=== PATIENT | male | born 1940 | race Caucasian/White ===

== ENCOUNTER 2024-12-18 17:31 | Inpatient (IN) | payer MEDICARE, OTHER ==
[~2024-12-18] VITALS: Ht 162.6 cm; Wt 65.5 kg
[2024-12-18] MEDS ORDERED: NS 1,000 ML IV SCH ×2 (19:20→20:05)
[2024-12-18] MEDS ORDERED: Ipratropium/Albuterol SulF 2.5-0.5MG/3 ML Amp INH ONE (19:40)
[2024-12-18 19:45] LABS: BASOPHILS ABSOLUTE AUTO 0.07 K/mm3 (0.00-0.23); BASOPHILS PERCENT AUTO 0 % (0-2); EOSINOPHILS PERCENT AUTO 0 % (0-6); Hematocrit 40.6 % (37.0-53.0); Hemoglobin 13.5 g/dL (13.5-17.5); IMMATURE GRAN ABSOLUTE AUTO 0.62 K/mm3 (0.00-0.10); IMMATURE GRAN PERCENT AUTO 2 % (0-1); LYMPHOCYTES ABSOLUTE AUTO 1.04 K/mm3 (0.84-5.20); LYMPHOCYTES PERCENT AUTO 4 % (21-46); MONOCYTES PERCENT AUTO 6 % (4-13); Mean Corpuscular HGB 28.5 pg (26.0-34.0); Mean Corpuscular HGB Conc 33.3 g/dL (31.5-36.5); Mean Corpuscular Volume 86 fL (80-100); Mean Platelet Volume 11.6 fL (9.1-12.4); NEUTROPHILS ABSOLUTE AUTO 25.08 K/mm3 (1.96-9.15); NEUTROPHILS PERCENT AUTO 88 % (41-73); Platelet Count 305 K/mm3 (150-400); RDW Standard Deviation 44.2 fL (35.1-46.3); Red Blood Cell Count 4.74 M/mm3 (4.30-5.90); White Blood Cell Count 28.41 K/mm3 (4.00-11.30)
[2024-12-18] MEDS ORDERED: CefTRIAXone Sodium 1,000 MG in NS 50 ML IV ONE (19:45)
[2024-12-18 20:05] LABS: Albumin, Blood 2.7 g/dL (3.4-5.0); Albumin/Globulin Ratio 0.5 (0.8-1.8); Bilirubin, Total 0.7 mg/dL (0.1-1.0); Bun/Creatinine Ratio 29.6 (12.0-20.0); Calcium, Blood 9.2 mg/dL (8.5-10.1); Creatinine, Blood 1.79 mg/dL (0.60-1.20); Potassium, Blood 3.2 mmol/L (3.5-5.5); Total Protein, Blood 7.7 g/dL (6.4-8.2)
[2024-12-18] MEDS ORDERED: FLU VACC TS2024-25(6MOS UP)/PF 45 MCG/0.5 ML SYRINGE IM ONE (20:05)
[2024-12-18] MEDS ORDERED: Ondansetron HCl 2 MG / ML 2ML Vial IV PRN (20:05)
[2024-12-18] MEDS ORDERED: Acetaminophen 325 MG TABLET PO PRN (20:05)
[2024-12-18] MEDS ORDERED: Enoxaparin 30 MG/0.3 ML SYR SC SCH (21:00)
[2024-12-18] MEDS ORDERED: Azithromycin 500 MG in NS 250 ML IV SCH (21:00)
[2024-12-18 21:15] LABS: CORONAVIRUS COVID-19 AG Negative (NEGATIVE); INFLUENZA A AG Negative (NEGATIVE); INFLUENZA B AG Negative (NEGATIVE)
[2024-12-18 21:37] VITALS: BP 169/74
--- NOTE | 2024-12-18 23:08 | NUR ---
PATIENT IS A NEW ADMIT FROM THE ED. ALERT, ORIENTED AND BEDREST REPORTING TOO WEAK TO GET UP AT THIS TIME. 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 ON 8L HIGH FLOW PLACED IN ED STATING 94% AND RA BASELINE. TELEMETRY PLACED NSR 92 AND LATER HAD FOUR BEAT RUN OF V-TACH JUST OVER AN HOUR AFTER ADMIT. NS STARTED @ 75 mL/HR AND IV ABX INFUSING. [facility] CALLED BY CHARGE TO GET PATIENT MED LIST WHERE HE LIVES. LOW GRADE TEMP 99.6. DENIES CHEST PAIN AND N/V. ORIENTED TO ROOM AND CALL LIGHT SYSTEM. WCTM.
[2024-12-18] MEDS ORDERED: Rosuvastatin Calcium 10 MG Tab PO SCH (23:40)
[2024-12-18] MEDS ORDERED: Morphine Sulfate 15 MG TABCR PO PRN (23:45)
[2024-12-19] VITALS (8 sets, daily range): BP systolic 111–152; BP diastolic 45–69
[2024-12-19] MEDS ORDERED: FentaNYL Citrate 50 MCG/ML 2 ML Injection IV PRN ×2 (00:05→00:25)
[2024-12-19] MEDS ORDERED: Potassium Chloride 20 MEQ in NS 90 ML IV ONE (00:20)
[2024-12-19] MEDS ORDERED: Potassium Chl 20MEQ/Water100ML 100 ML IV STA (00:27)
--- NOTE | 2024-12-19 01:58 | NUR ---
DR DÍAZ REPORTS HE IS HOLDING PO MORPHINE AT THIS TIME BASED ON LABS. PATIENT IS REFUSING ALL OTHER SUGGESTED PAIN MEDS. IV K+ INFUSING. WCTM.
[2024-12-19] MEDS ORDERED: Lactated Ringer's 500 ML IV ONE (03:30)
[2024-12-19] MEDS ORDERED: METOPROLOL TARTRATE IV ONE (03:33)
[2024-12-19] MEDS ORDERED: Metoprolol Tartrate 1 MG/ML 5 ML VIAL IV ONE ×3 (04:05→07:00)
[2024-12-19] MEDS ORDERED: Adenosine 3 MG/ML 2 ML Vial ONE (04:06)
[2024-12-19] MEDS ORDERED: Adenosine 3 MG/ML 2 ML Vial IV ONE (04:10)
[2024-12-19 04:11] LABS: Bicarbonate Venous 23.2 mmol/L (24.0-30.0); pH Blood Venous 7.43 (7.34-7.37)
[2024-12-19 04:13] LABS: Hemoglobin 13.1 g/dL (13.5-17.5); Mean Corpuscular HGB Conc 33.6 g/dL (31.5-36.5); Mean Corpuscular Volume 87 fL (80-100); Mean Platelet Volume 12.1 fL (9.1-12.4); Platelet Count 309 K/mm3 (150-400); RDW Coefficient Variation 14.3 % (11.7-14.2); RDW Standard Deviation 45.4 fL (35.1-46.3); Red Blood Cell Count 4.51 M/mm3 (4.30-5.90); White Blood Cell Count 32.51 K/mm3 (4.00-11.30)
[2024-12-19 04:32] LABS: BAND PERCENT MAN 14 % (0-8); BASOPHILS PERCENT MAN 0 % (0-2); EOSINOPHILS PERCENT MAN 0 % (0-6); LYMPHOCYTES ABSOLUTE MAN 0.65 K/mm3 (0.84-5.20); LYMPHOCYTES PERCENT MAN 2 % (21-46); MONOCYTES ABSOLUTE MAN 2.27 K/mm3 (0.16-1.47); MONOCYTES PERCENT MAN 7 % (4-13); NEUTROPHILS ABSOLUTE MAN 29.58 K/mm3 (1.96-9.15); SEG NEUTROPHILS PERCENT MAN 77 % (41-73); TOTAL CELLS COUNTED 100
[2024-12-19 04:50] LABS: D-Dimer, Quantitative 1.46 mg/L FEU (0.00-0.52); International Normalized Ratio 1.17; Prothrombin Time Results 12.4 Sec (9.7-11.5)
[2024-12-19 05:02] LABS: Thyroid Stimulating Hormone 0.181 uIU/mL (0.360-4.800)
[2024-12-19 05:03] LABS: Albumin, Blood 2.3 g/dL (3.4-5.0); Albumin/Globulin Ratio 0.5 (0.8-1.8); Bilirubin, Total 0.6 mg/dL (0.1-1.0); Bun/Creatinine Ratio 28.4 (12.0-20.0); Calcium, Blood 8.6 mg/dL (8.5-10.1); Creatinine, Blood 1.62 mg/dL (0.60-1.20); Globulin, Blood 4.3 g/dL (2.2-4.0); Potassium, Blood 3.5 mmol/L (3.5-5.5); Total Protein, Blood 6.6 g/dL (6.4-8.2)
[2024-12-19] MEDS ORDERED: Potassium Chl 20MEQ/Water100ML 100 ML IV SCH (05:25)
[2024-12-19] MEDS ORDERED: Potassium Chloride 40 MEQ in NS 250 ML IV ONE (06:00)
[2024-12-19] MEDS ORDERED: Mag Sulfate 1 GM/D5% 100ML 100 ML IV STA (07:01)
[2024-12-19] MEDS ORDERED: NS 1,000 ML IV SCH (08:50)
[2024-12-19] MEDS ORDERED: Lactobacil 2-S.Thermo-Bifido 1 1 Cap PO SCH (09:00)
[2024-12-19] MEDS ORDERED: Metoprolol Tartrate 25 MG Tab PO SCH (09:00)
--- NOTE | 2024-12-19 10:00 | NUR ---
AM NOTE: PATIENT ALERT AND ORIENTED X4. PERRLA. DENIES PAINS. ABLE TO MAKE NEEDS KNOWN. MOVING ALL EXTREMITIES. USES 4 WHEEL WALKER AT BASELINE. HELPING STAFF TURN IN BED. DENIES PAINS. TELE SHOWING SINUS ARRHYTHMIA WITH HR 50-70'S. DENIES CHEST PAIN/PRESSURE/PALPITATIONS. NO EDEMA NOTED. IV FLUIDS INFUSING PER EMAR. PPP. ON 11L HIGH FLOW NASAL CANNULA SATING MID 90'S. LUNG SOUNDS COARSE WORSE ON LET THIS MORNING COMPARED TO RIGHT. COARSE/WET COUGH. EVEN AND UNLABORED RESPIRATIONS AT REST. INSTRUCTED AND ENCOURAGED TO USE IS AND FLUTTER. BOWEL TONES PRESENT IN ALL FOUR QUADRANTS. SPEECH THERAPY THIS MORNING. TOLERATING PO LQUIDS, DENIES BREAKFAST AND LUNCH. STATES HE HAS A POOR APPEATITE. LIQUID GREEN TINGED STOOLS. GI PANEL ORDERS IN PLACE AND SAMPLE SENT. ATTENDS IN PLACE. CHRONIC ESTRADA CHANGED UPON ADMIT AND DRAINING NISHI/YELLOW URINE TO GRAVITY. INTERMIT NAUSEA, RELIEVED WITH IV ZOFRAN. DR. VARGHESE TO BEDSIDE THIS MORNING AND THIS RN PRESENT FOR MD ROUNDING. SECURITY TO BEDSIDE AND PLACED PATIENT WALLET IN SAFE. CALL LIGHT IN REACH.
[2024-12-19] MEDS ORDERED: ASPI81CH PO (10:20)
[2024-12-19] MEDS ORDERED: EUTHYROX50 MCG PO (10:21)
[2024-12-19] MEDS ORDERED: MS CONTIN15 MG PO (10:22)
[2024-12-19] MEDS ORDERED: Morphine Sulfat15 MG PO (10:24)
[2024-12-19] MEDS ORDERED: ONDA4ODT MM (10:25)
[2024-12-19] MEDS ORDERED: Crestor40 MG PO (10:26)
[2024-12-19] MEDS ORDERED: MIRALAX17 GM PO (10:26)
[2024-12-19] MEDS ORDERED: BISA10S PR (10:27)
[2024-12-19] MEDS ORDERED: LOPE2C PO (10:27)
[2024-12-19] MEDS ORDERED: DULCOLAX400 MG/5 M PO (10:27)
[2024-12-19] MEDS ORDERED: Polyethylene Glycol 3350 17 gm PO PRN (10:45)
[2024-12-19] MEDS ORDERED: Magnesium Hydroxide Conc 10 ML UDC PO PRN (10:45)
[2024-12-19] MEDS ORDERED: Bisacodyl 10 MG Supp PR PRN (10:45)
[2024-12-19] MEDS ORDERED: Ondansetron 4 MG SoluTab MM PRN (10:45)
[2024-12-19] MEDS ORDERED: Loperamide HCl 2 MG Cap PO PRN (10:45)
[2024-12-19 10:53] LABS: Source, Urine Foley catheter
[2024-12-19] MEDS ORDERED: Lactated Ringer's 1,000 ML IV SCH (11:00)
[2024-12-19 11:32] LABS: Appearance, Urine Hazy (Clear); Bilirubin, Urine Neg (Neg); Blood, Urine 5+ (Neg); Color, Urine Yellow (P-Yellow); Glucose Qualitative, Urine Neg (Neg); Ketones, Urine Neg (Neg); Leukocyte Esterase, Urine 2+ (Neg); Nitrite, Urine Neg (Neg); Protein, Urine 3+ (Neg); Urobilinogen, Urine NORM (Normal)
[2024-12-19 12:05] LABS: Hyaline Casts 0-2 /lpf (0-2); White Blood Cells, Urine 50-100 /hpf (0-5)
[2024-12-19 12:06] LABS: Amorphous Light (0-Heavy); Bacteria Many /hpf; Granular Casts 0-2 /lpf (0); Red Blood Cells, Urine 50-100 /hpf (0-2); Squamous Epithelial Cells Not Seen /hpf (Few)
--- NOTE | 2024-12-19 14:25 | NUR ---
NO POLST ON FILE WITH [facility] OR [facility].
[2024-12-19 16:47] LABS: Adenovirus F 40/41 Not Detected (NOT DETECT); Astrovirus Not Detected (NOT DETECT); Campylobacter Sp Not Detected (NOT DETECT); Cryptosporidium Not Detected (NOT DETECT); Cyclospora Cayetanensis Not Detected (NOT DETECT); E. Coli O157 Not Detected (NOT DETECT); Entamoeba Histolytica Not Detected (NOT DETECT); Enteroaggregative E. coli-EAEC Not Detected (NOT DETECT); Enteropathogenic E. coli-EPEC Not Detected (NOT DETECT); Enterotoxigenic E. coli-ETEC Not Detected (NOT DETECT); Giardia Lamblia Not Detected (NOT DETECT); Norovirus GI/GII Not Detected (NOT DETECT); Plesiomonas Shigelloides Not Detected (NOT DETECT); Rotavirus A Not Detected (NOT DETECT); Salmonella Sp Not Detected (NOT DETECT); Sapovirus Not Detected (NOT DETECT); Shiga Toxin-prod E. coli-STEC Not Detected (NOT DETECT); Shigella/Enteroin E. coli-EIEC Not Detected (NOT DETECT); Vibrio Cholerae Not Detected (NOT DETECT); Vibrio Sp Not Detected (NOT DETECT); Yersinia Enterocolitica Not Detected (NOT DETECT)
--- NOTE | 2024-12-19 18:24 | NUR ---
SHIFT SUMMARY: NO ACUTE CHANGES. PATIENT REMAINS ALERT AND ORIENTED. SLEEPING MOST OF SHIFT, WAKING FOR CARES. REMAINS ON 9L HIGH FLOW NASAL CANNULA SATING MID 90'S. TELE SHOWING SINUS ARRHYTHMIA WITH HR 50-70'S. VITAL SIGNS STABLE. POOR APPEATITE, DRINKING ENSURE BUT REFUSING MEALS. FREQUENT LOOSE GREEN STOOLS. GI PANEL COLLECTED THIS SHIFT. INTERMIT NAUSEA, RELIEVED WITH IV ZOFRAN. LR INFUSING PER EMAR. CALL LIGHT IN REACH. DENIES NEEDS.
[2024-12-19] MEDS ORDERED: CefTRIAXone Sodium 1,000 MG in NS 100 ML IV SCH (20:00)
--- NOTE | 2024-12-19 21:03 | NUR ---
ASSUMPTION NOTE: THIS RN TO ASSUME CARE OF PATIENT. PATIENT IS ALERT AND ORIETNED X4 AND COMPLAINING OF SOME STOMACH PAIN AND ASKED FOR TYLENOL. VITAL SGINS TAKEN AND PATIENT STABLE. PATIENT HAS FLUIDS RUNNING AND STATED HIS STOMACH FEELS LIKE CRAMPING PAIN. PATIENT HAD A BOWEL MOVEMENT THAT WAS VERY LOOSE AND GREEN. PATIENT HAS CALL LIGHT WITHIN REACH AND BED IN LOWEST POSITION.
[2024-12-20] VITALS (10 sets, daily range): BP systolic 140–187; BP diastolic 58–85
--- NOTE | 2024-12-20 00:29 | NUR ---
MD CALLED THIS RN CALLED RESIDENT FOR PATIENT NOTED HYPERTENSIVE EPISODES, SYTOLIC >180. PATIENT ASYMPTOMATIC, RESIDENT ORDERS GIVEN.
[2024-12-20] MEDS ORDERED: HydrALAZINE HCl 20 MG / ML 1ML Vial IV PRN (00:30)
--- NOTE | 2024-12-20 01:45 | NUR ---
MD CALLED: THIS RN CALLED MD REGARDING THE PATIENTS BLOOD PRESSURE SYSTOLIC >180 AND NOTIFIED OF PATIENTS RUN OF SVT WITH TOUCHING THE 140'S. MD DID NOT PLACE NEW ORDERS, STATED TO CONTINUE TO MONITOR AND WILL LOOK INTO CHART. PATIENT STATES "HE DOES NOT FEEL ANY CHEST PAIN, DOES FEEL SOB AND STOMACH STILL HURTS". THIS RN INCREASED OXYGEN AND WILL CONTINUE TO MONITOR BLOOD PRESSURE.
[2024-12-20] MEDS ORDERED: Mag Hydrox/Al Hydrox/Simeth 18 ML,Lidocaine 2% Viscous Soln 9 ML,Atropine/Scopalam/Hyos... PO PRN (02:50)
[2024-12-20] MEDS ORDERED: AmLODIPine Besylate 5 MG Tab PO SCH (02:55)
--- NOTE | 2024-12-20 02:59 | NUR ---
ATTENDING CALLED THIS RN CALLED ATTENDIING PATIENT CONTINUES TO HAVE ELEVATED SYSTOLIC BLOOD PRESSURE IN THE 180'S. PATIENT DENIES ANY SYMTPOMS BUT CONTINUES TO COMPLAIN OF STOMACH PAIN A GI COCKTAIL WAS ASKED FOR ALSO. ORDERS WERE TO BE PLACED.
--- NOTE | 2024-12-20 04:19 | NUR ---
SHIFT SUMMARY: PATIENT IS ALERT AND ORIENTED X4 AND ACTIVE IN HIS CARE, IS ABLE TO MAKE NEEDS KNOWN. ON TELE SHOWING SINUS WITH RATE IN 70'S. PATIENT DID HAVE TWO RUNS OF SVT THROUGHOUT THE SHIFT, SEE PREVIOUS NOTES FOR MORE DETAILS. PATIENT BLOOD PRESSURE ELVATED THROUGHOUT SHIFT AND WAS GIVEN MEDICATIONS PER MD ORDERS, SEE PREVIOUS NOTES FOR MORE DETAILS. PATIENT COMPLAINED OF GI UPSET AND WAS GIVEN A GI COCKTAIL & ZOFRAN. PATIENT WAS ABLE TO SLEEP THROUGHOUT SHIFT. PATIENT CONTINUES TO HAVE LOOSE LIQUID STOOL AND DECLINED A RECTAL TUBE. THIS RN WILL CONTINUE TO MONITOR PATIENT UNTIL SHIFT CHANGE AND DAY SHIFT RN ASSUMES CARE.
[2024-12-20 05:09] LABS: Hematocrit 38.1 % (37.0-53.0); Hemoglobin 12.7 g/dL (13.5-17.5); Mean Corpuscular HGB 28.5 pg (26.0-34.0); Mean Corpuscular HGB Conc 33.3 g/dL (31.5-36.5); Mean Corpuscular Volume 85 fL (80-100); Mean Platelet Volume 12.4 fL (9.1-12.4); Platelet Count 342 K/mm3 (150-400); RDW Coefficient Variation 14.5 % (11.7-14.2); RDW Standard Deviation 45.1 fL (35.1-46.3); Red Blood Cell Count 4.46 M/mm3 (4.30-5.90); White Blood Cell Count 19.99 K/mm3 (4.00-11.30)
[2024-12-20 05:29] LABS: BAND PERCENT MAN 5 % (0-8); BASOPHILS PERCENT MAN 0 % (0-2); EOSINOPHILS PERCENT MAN 0 % (0-6); LYMPHOCYTES ABSOLUTE MAN 1.39 K/mm3 (0.84-5.20); LYMPHOCYTES PERCENT MAN 7 % (21-46); MONOCYTES ABSOLUTE MAN 0.79 K/mm3 (0.16-1.47); MONOCYTES PERCENT MAN 4 % (4-13); NEUTROPHILS ABSOLUTE MAN 17.79 K/mm3 (1.96-9.15); SEG NEUTROPHILS PERCENT MAN 84 % (41-73); TOTAL CELLS COUNTED 100
[2024-12-20 05:36] LABS: Albumin, Blood 2.2 g/dL (3.4-5.0); Albumin/Globulin Ratio 0.5 (0.8-1.8); Bilirubin, Total 0.4 mg/dL (0.1-1.0); Bun/Creatinine Ratio 31.1 (12.0-20.0); Creatinine, Blood 1.22 mg/dL (0.60-1.20); Globulin, Blood 4.4 g/dL (2.2-4.0); Magnesium, Blood 2.4 mg/dL (1.6-2.4); Potassium, Blood 3.2 mmol/L (3.5-5.5); Total Protein, Blood 6.6 g/dL (6.4-8.2)
[2024-12-20] MEDS ORDERED: Levothyroxine Sodium 0.05 MG Tab PO SCH (06:00)
--- NOTE | 2024-12-20 07:30 | NUR ---
ASSUMPTION OF CARE: THIS RN TO ASSUE CARE OF PT AFTER REPORT FROM NOC RN. UPON ENTRANCE INTO ROOM PT AXO X 4. HE IS COOPERATIVE WITH RN ASSESMENT. HE DENIES ANY C/P AND REPORTS IMPROVEMENT IN SOB. HE HAS BILATERAL LOWER LOBE PNEUMONIA RECEIVING IV ABX, SATTING 94% ON 6L. LUNG SOUNDS CRACKLES IN BASES. HE HAS BEEN TREATED FOR ELEAVTED B/P WOTH IV HUDRALYZINE AND PO AMLODIPINE T/O THE NIGHT. B/P STABLE 140/68. PT C/O NAUSEA AND ABD PAIN WITH LOOSE GREEN STOOL T/O THE NIGHT, PLAN TO DISCUSS NAUSEA MEDS WITH MD. PO REGLAN Q6. PT HAS 20G IVS TO LAC AND RAC. WAS HAVING RUNS OF SVT INTO 160S. HR STABLE AT 78 SINUS AT THIS TIME. HE HAS LOWER EXT WEAKNESS AND BASLEINE AMBULATES WITH WALKER. ESTRADA CATH CHRONIC AND DRAINING TO GRAVITY. CALL LIGHT PROVIDED, PT DENIES NEEDS.
[2024-12-20] MEDS ORDERED: Potassium Chloride 20 MEQ TabCR PO ONE (08:00)
[2024-12-20] MEDS ORDERED: Aspirin 81 MG Chew PO SCH (09:00)
[2024-12-20] MEDS ORDERED: Metoclopramide HCl 5MG / ML 2ML Vial IV PRN (09:55)
[2024-12-20] MEDS ORDERED: Morphine Sulfate 4 MG/1 ML Injection IV PRN (10:30)
[2024-12-20] MEDS ORDERED: Lactated Ringer's 1,000 ML IV SCH (11:00)
[2024-12-20] MEDS ORDERED: Potassium Chl 20MEQ/Water100ML 100 ML IV SCH (13:00)
[2024-12-20] MEDS ORDERED: Morphine Sulfate 15 MG TABCR PO SCH (16:00)
--- NOTE | 2024-12-20 16:38 | NUR ---
PT HAD RUN OF SVT UP TO 160S. PT CONVERTED BACK TO 73NSR WITHIN 2 MINUTES. NOTIFIED.
--- NOTE | 2024-12-20 17:48 | NUR ---
PCU DAY SHIFT SUMMARY: PT CONTINUED TO COMPLAIN OF N/V T/O THE DAY. HE WAS GIVEN PRN ZOFRAN X2 DOSES WITH 1 EPISODE OF EMESIS WITH PO POTASSIUM. NOW RECEIVING IV POTASSIUM W/ LR. HE HAD SEVERAL LIQUID BOWEL MOVEMENTS, GREEN IN COLOR. IMMODIUM GIVEN X2. PT REMAINED AXO X 4. HE WAS IRRITABLE AND ANXIOUS. HX OF ANXIETY DISORDER AND PANIC ATTACKS. HE HAD A SINGLE RUN OF SVT 160S THAT RESOLVED AFTER 2 MINUTES W/O INTERVENTION. MD NOTIFIED. HE CONTINUED TO BE ON 6L N/C WITH CRACKLES IN BILATERAL LOBES. SATTING 99%. RECEIVING IV ABX. HE HAS SOME EXCORIATION TO SACRUM D/T LIQUID STOOLS. HE WISHES TO REMAIN UNBOTHERED BY RN AND OTHER STAFF AND ADVISED HE WOULD CALL IF HE NEEDED STAFF ASSISTANCE. PT DENIES NEEDS, SLEEPING AT THIS TIME
[2024-12-21] VITALS (8 sets, daily range): BP systolic 119–167; BP diastolic 47–71
[2024-12-21] MEDS ORDERED: Levothyroxine Sodium 0.025 MG Tab PO SCH (06:00)
[2024-12-21 07:57] LABS: Hematocrit 34.3 % (37.0-53.0); Hemoglobin 11.5 g/dL (13.5-17.5); Mean Corpuscular HGB 29.2 pg (26.0-34.0); Mean Corpuscular HGB Conc 33.5 g/dL (31.5-36.5); Mean Corpuscular Volume 87 fL (80-100); Mean Platelet Volume 11.7 fL (9.1-12.4); Platelet Count 364 K/mm3 (150-400); RDW Coefficient Variation 14.5 % (11.7-14.2); RDW Standard Deviation 46.3 fL (35.1-46.3); Red Blood Cell Count 3.94 M/mm3 (4.30-5.90); White Blood Cell Count 19.54 K/mm3 (4.00-11.30)
[2024-12-21 08:23] LABS: Albumin/Globulin Ratio 0.5 (0.8-1.8); Bilirubin, Total 0.4 mg/dL (0.1-1.0); Bun/Creatinine Ratio 28.6 (12.0-20.0); Calcium, Blood 8.7 mg/dL (8.5-10.1); Creatinine, Blood 1.19 mg/dL (0.60-1.20); Potassium, Blood 3.4 mmol/L (3.5-5.5)
[2024-12-21 08:32] LABS: BASOPHILS PERCENT MAN 0 % (0-2); EOSINOPHILS PERCENT MAN 0 % (0-6); LYMPHOCYTES ABSOLUTE MAN 1.75 K/mm3 (0.84-5.20); LYMPHOCYTES PERCENT MAN 9 % (21-46); METAMYELOCYTE ABSOLUTE MAN 0.39 K/mm3 (0.00-0.00); METAMYELOCYTE PERCENT MAN 2 % (0-0); MONOCYTES ABSOLUTE MAN 1.95 K/mm3 (0.16-1.47); MONOCYTES PERCENT MAN 10 % (4-13); NEUTROPHILS ABSOLUTE MAN 15.43 K/mm3 (1.96-9.15); SEG NEUTROPHILS PERCENT MAN 79 % (41-73); TOTAL CELLS COUNTED 100
[2024-12-21] MEDS ORDERED: Metoprolol Tartrate 50 MG Tab PO SCH (09:00)
[2024-12-21] MEDS ORDERED: AmLODIPine Besylate 5 MG Tab PO SCH (09:00)
[2024-12-21] MEDS ORDERED: Potassium Phosphate Dibasic 30 MM in Dextrose 5% 500 ML IV STA (13:02)
--- NOTE | 2024-12-21 17:05 | NUR ---
SHIFT SUMMARY NO ACUTE CHANGES THIS SHIFT. PT A&OX4. SP02>90% oN 8L HUMIDIFIED HIFLO. TELE SHOWS NSR/SBR HR 50-70'S. C/O OF PAIN, MEDICATED PER EMAR. ESTRADA CATHETER DRAINING TO GRAVITY. NO BM THIS SHIFT. PT ABLE TO EAT MEALS TODAY, PT STATES FOR FIRST TIME IN A WEEK. MEDICATED W/ ZOFRAN PER EMAR X1. NO LOOSE STOOLS. FLUIDS INFUSED PER EMAR. KPHOS INFUSING PER EMAR. CALL LIGHT IN REACH.
[2024-12-22 03:24] VITALS: BP 149/51
--- NOTE | 2024-12-22 06:02 | NUR ---
SHIFT SUMMARY PT A&O X4, CALM, COOPERATIVE TO CARE. HR IN THE 50'S-60'S, DENIES CP/PRESSURE, NUMB/TINGLING, SBP ELEVATED, MEDICATING PER EMAR. 02 RNAGING FROM 89-94% ON 8L VIA HFNC, HE HAS A NONPRODUCTOVE COUGH. PT DESATS WITH SLEEP, HE RECOVERS QUICKLY WITH DEEP BREATHING. PT HAS A CHRONIC INDWELLING ESTRADA, DRAINING TO GRAVITY. PT WAS HAVING LOOSE STOOLS, EXTERNAL PUREWICK PLACED OVER RECTUM TO COLLECT STOOL. PT HAS NOT HAD A BM T/O SHIFT. HE IS RESTING IN BED. WILL MONITOR AND REPORT TO CENTRAL OFFICE TECHNICIAN RN.
[2024-12-22 06:39] LABS: BASOPHILS ABSOLUTE AUTO 0.11 K/mm3 (0.00-0.23); BASOPHILS PERCENT AUTO 1 % (0-2); EOSINOPHILS ABSOLUTE AUTO 0.12 K/mm3 (0.00-0.68); EOSINOPHILS PERCENT AUTO 1 % (0-6); Hematocrit 35.8 % (37.0-53.0); Hemoglobin 11.8 g/dL (13.5-17.5); IMMATURE GRAN PERCENT AUTO 8 % (0-1); LYMPHOCYTES ABSOLUTE AUTO 1.97 K/mm3 (0.84-5.20); LYMPHOCYTES PERCENT AUTO 15 % (21-46); MONOCYTES ABSOLUTE AUTO 0.89 K/mm3 (0.16-1.47); MONOCYTES PERCENT AUTO 7 % (4-13); Mean Corpuscular HGB 28.5 pg (26.0-34.0); Mean Corpuscular Volume 87 fL (80-100); Mean Platelet Volume 11.7 fL (9.1-12.4); NEUTROPHILS ABSOLUTE AUTO 8.98 K/mm3 (1.96-9.15); NEUTROPHILS PERCENT AUTO 68 % (41-73); Platelet Count 354 K/mm3 (150-400); RDW Coefficient Variation 14.6 % (11.7-14.2); RDW Standard Deviation 46.5 fL (35.1-46.3); Red Blood Cell Count 4.14 M/mm3 (4.30-5.90); White Blood Cell Count 13.17 K/mm3 (4.00-11.30)
[2024-12-22 07:09] LABS: Albumin, Blood 2.1 g/dL (3.4-5.0); Albumin/Globulin Ratio 0.5 (0.8-1.8); Bilirubin, Total 0.4 mg/dL (0.1-1.0); Bun/Creatinine Ratio 30.2 (12.0-20.0); Calcium, Blood 8.4 mg/dL (8.5-10.1); Creatinine, Blood 1.16 mg/dL (0.60-1.20); Magnesium, Blood 2.4 mg/dL (1.6-2.4); Potassium, Blood 3.7 mmol/L (3.5-5.5); Total Protein, Blood 6.1 g/dL (6.4-8.2)
[2024-12-22 07:51] LABS: BASOPHILS PERCENT MAN 0 % (0-2); EOSINOPHILS ABSOLUTE MAN 0.13 K/mm3 (0.00-0.68); EOSINOPHILS PERCENT MAN 1 % (0-6); LYMPHOCYTES ABSOLUTE MAN 1.31 K/mm3 (0.84-5.20); LYMPHOCYTES PERCENT MAN 10 % (21-46); METAMYELOCYTE ABSOLUTE MAN 0.13 K/mm3 (0.00-0.00); METAMYELOCYTE PERCENT MAN 1 % (0-0); MONOCYTES ABSOLUTE MAN 1.18 K/mm3 (0.16-1.47); MONOCYTES PERCENT MAN 9 % (4-13); MYELOCYTE ABSOLUTE MAN 0.13 K/mm3 (0.00-0.00); MYELOCYTE PERCENT MAN 1 % (0-0); NEUTROPHILS ABSOLUTE MAN 10.27 K/mm3 (1.96-9.15); SEG NEUTROPHILS PERCENT MAN 78 % (41-73); TOTAL CELLS COUNTED 100
[2024-12-22 07:55] VITALS: BP 155/73
[2024-12-22] MEDS ORDERED: AmLODIPine Besylate 5 MG Tab PO SCH (09:00)
[2024-12-22] MEDS ORDERED: Metoprolol Tartrate 50 MG Tab PO SCH (09:00)
[2024-12-22] MEDS ORDERED: Enoxaparin 40 MG/0.4 ML SYR SC SCH (09:00)
--- NOTE | 2024-12-22 10:00 | NUR ---
AM NOTE: PATIENT ALERT AND ORIENTED. ABLE TO MAKES NEEDS KNOWN. USING CALL LIGHT. MOVING ALL EXTREMITIES. ABLE TO TURN SELF IND. COMPLAINS OF LOWER BACK PAIN, MEDICATED PER EMAR. TELE SHOWING SB/SR WITH PVC/PAC. HR 50-70'S. SBP 150'S. DENIES CHEST PAIN/PRESSURE/PALPITATIONS. PPP. IV SALINE LOCKED. ON 6-8L HIGH FLOW NASAL CANNULA SATING MID 90'S. SOB WITH MOVEMENT IN BED. MOIST/WET COUGH. IS AND FLUTTER VALVE AT BEDSIDE AND THIS RN REINFORCED EDUCATION AND ENCOURAGMENT. BOWEL TONES PRESENT. PATIENT HAD MULTIPLE LIQUID STOOL PRIOR TO THIS SHIFT BUT IS NOW COMPLAINGING OF CONSTIPATION AND WAS GIVEN MIRALAX BY PRIOR SHIFT. TOLERATING PO DIET. ORAL CARE COMPLETED THIS AM. CHRONIC ESTRADA CATH IN PLACE. CATH CARE COMPLETED WITH AM BED BATH. DENIES ABDOMINAL PAIN/NAUSEA. CALL LIGHT IN REACH.
[2024-12-22 12:17] VITALS: BP 113/51
[2024-12-22 15:51] VITALS: BP 130/56
--- NOTE | 2024-12-22 18:24 | NUR ---
SHIFT SUMMARY: NO ACUTE CHANGES. PATIENT REMAINS ALERT AND ORIENTED. TELE CONTINUES TO SHOW SB/SR. TITRATED DOWN TO 3L THIS SHIFT. WORKING WITH PT/OT. MEDICATED FOR PAIN WITH SCHEDULED MORPHINE. UP TO RECLINER THIS AFTERNOON AND SHORT WALK AROUND THE ROOM. IV'S SALINE LOCKED. 2 LOOSE BOWEL MOVEMENTS. CHRONIC ESTRADA CATH REMAINS PATENT WITH NISHI COLORED URINE TO GRAVITY. CALL LIGHT IN REACH. DENIES NEEDS AT THIS TIME.
[2024-12-22 19:30] VITALS: BP 128/81
--- NOTE | 2024-12-22 23:00 | NUR ---
TRANSFER SUMMARY PT A&O X4, CALM, COOPERATIVE TO CARE. HR IN THE 50'S-60'S, SINUS RHYTHM. HE DENIES CP/PRESSURE, NUMB/TINGLING, SBP IN THE 130'S. O2 >90% ON 4L VIA HHFNC, HE DENIES SOB AT THIS TIME. CHRONIC ESTRADA IN PLACE, ESTRADA DRAINING TO GRAVITY. PT DENIES ANY QUESTIONS OR CONCERNS. ROOM AVAILABLE FOR PT ON MEDICAL FLOOR. REPORT GIVEN TO TITUS WALKER. PT CONCERNED ABOUT HIS ITEMS THAT SECURITY HAS, PT HAS TICKET IN PHYSICAL CHART ADVISED RECEIVING RN OF THIS. PT LEFT VIA PCU BED TO MEDICAL FLOOR WITH PCT.
[2024-12-22 23:02] VITALS: BP 146/69
[2024-12-23 03:40] VITALS: BP 150/55
[2024-12-23] MEDS ORDERED: Levothyroxine Sodium 0.025 MG Tab PO SCH (06:00)
[2024-12-23 06:18] LABS: Hematocrit 34.7 % (37.0-53.0); Hemoglobin 11.5 g/dL (13.5-17.5); Mean Corpuscular HGB 28.6 pg (26.0-34.0); Mean Corpuscular HGB Conc 33.1 g/dL (31.5-36.5); Mean Corpuscular Volume 86 fL (80-100); Mean Platelet Volume 11.6 fL (9.1-12.4); Platelet Count 364 K/mm3 (150-400); RDW Coefficient Variation 14.5 % (11.7-14.2); RDW Standard Deviation 45.7 fL (35.1-46.3); Red Blood Cell Count 4.02 M/mm3 (4.30-5.90); White Blood Cell Count 14.59 K/mm3 (4.00-11.30)
--- NOTE | 2024-12-23 06:36 | NUR ---
SHIFT SUMMARY PT TRANSFERRED TO FLOOR 2300. HE IS ON 4L VIA NC. PT HAS A CHRONIC ESTRADA FOR URINARY RETENTION. HE HAS BEEN SLEEPING COMFORTABLY, WAKING TO AMBULATE TO BATHROOM. PT HAS BEEN PLEASANT AND COOPERATIVE WITH HIS CARE.
[2024-12-23 06:42] LABS: Albumin/Globulin Ratio 0.5 (0.8-1.8); Bilirubin, Total 0.5 mg/dL (0.1-1.0); Bun/Creatinine Ratio 31.8 (12.0-20.0); Calcium, Blood 8.7 mg/dL (8.5-10.1); Creatinine, Blood 1.07 mg/dL (0.60-1.20); Globulin, Blood 3.8 g/dL (2.2-4.0); Magnesium, Blood 2.1 mg/dL (1.6-2.4); Potassium, Blood 4.2 mmol/L (3.5-5.5); Total Protein, Blood 5.8 g/dL (6.4-8.2)
[2024-12-23 06:56] LABS: BAND PERCENT MAN 1 % (0-8); BASOPHILS PERCENT MAN 0 % (0-2); EOSINOPHILS ABSOLUTE MAN 0.14 K/mm3 (0.00-0.68); EOSINOPHILS PERCENT MAN 1 % (0-6); LYMPHOCYTES ABSOLUTE MAN 1.31 K/mm3 (0.84-5.20); LYMPHOCYTES PERCENT MAN 9 % (21-46); METAMYELOCYTE ABSOLUTE MAN 0.58 K/mm3 (0.00-0.00); METAMYELOCYTE PERCENT MAN 4 % (0-0); MONOCYTES ABSOLUTE MAN 1.31 K/mm3 (0.16-1.47); MONOCYTES PERCENT MAN 9 % (4-13); MYELOCYTE ABSOLUTE MAN 0.14 K/mm3 (0.00-0.00); MYELOCYTE PERCENT MAN 1 % (0-0); NEUTROPHILS ABSOLUTE MAN 11.08 K/mm3 (1.96-9.15); SEG NEUTROPHILS PERCENT MAN 75 % (41-73); TOTAL CELLS COUNTED 100
[2024-12-23 07:41] VITALS: BP 158/54
[2024-12-23] MEDS ORDERED: Nitrofurantoin/Nitrofuran Mac 100 MG Cap PO SCH (09:00)
[2024-12-23 12:02] VITALS: BP 99/64
[2024-12-23 15:00] VITALS: BP 149/61
--- NOTE | 2024-12-23 17:07 | NUR ---
INITIAL PALLIATIVE CARE VISIT: MET WITH PT IN THE ROOM. PT IS AWAKE AND ABLE TO ANSWER QUESTIONS APPROPRIATELY. DISCUSSED PT GOALS OF CARE AND CONCERNS. PT REPORTS HE WAS IN [facility] FOR A YEAR AND DID NOT HAVE A PCP. HE HAS APPT SCHEDULED WITH [facility] ON 01/06. HE IS HOPING HE CAN GET APPT SOONER. PT ALSO REQUESTS HIS MEDICATIONS BE FILLED IF HE IS RUNNING OUT OF THEM. HE IS CONCERNED HE WILL NOT HAVE ENOUGH MSCONTIN AND ZOFRAN TO LAST UNTIL HE ESTABLISHES CARE WITH PCP. PT ALSO IS CONCERNED HE WILL NO BE ABLE TO GET CATHETER CHANGED NEXT MONTH BECAUSE HIS APPT WITH UROLOGY APPT ISN'T UNTIL FEBRUARY. HE REPORTS HE CAME TO ER BECAUSE HIS CATHETER NEEDED TO BE CHANGED DUE TO SEDIMENT AND IT CLOGGED. ADVISED PT HE WILL HAVE TO COME TO ER FOR CATHETER CHANGES IF HE IS ABLE TO GET TO APPTS UNLESS HE QUALIFIES FOR HOME HEALTH. PCP CAN ORDER HOME HEALTH FOR CATHETER CHANGES. DISCUSSED CODE STATUS WITH PT. RISKS VS BENEFITS DISCUSSED WITH PT. PT WISHES TO REMAIN FULL CODE AT THIS TIME. ATTEMPTED TO GET HIS APPT TO ESTABLISH CARE WITH [facility] [facility] SOONER BUT THE STAFF THAT SCHEDULE APPTS WAS ALREADY GONE FOR THE DAY. CALL PLACED TO [facility]. VINNY AT [facility] STATED PT HAS PLENTY OF MEDICATIONS UNTIL THE AND DOES NOT NEED REFILLS ESPECIALLY SINCE HE HAS NOT TAKEN ANY SINCE HOSPITALIZATION.
--- NOTE | 2024-12-23 17:15 | NUR ---
NO ACUTE CHANGES PT IS AOX3 AND COOPERATIVE OF CARE. NO DISTRESS NOTED AND IS ABLE TO BE A 1 ASSIST WITH WALKER TO RESTROOM. PT CONTINUES TO HAVE LOOSE BMs,BUT REFYSED IMODIUM. TREATED FOR PAIN PER EMAR. CALL LIGHT IS WITHIN REACH WILL CONITNUE TO MONITOR.
[2024-12-23 19:58] VITALS: BP 146/57
[2024-12-23 23:12] VITALS: BP 157/55
[2024-12-24 03:33] VITALS: BP 147/52
--- NOTE | 2024-12-24 03:36 | NUR ---
HOST/HOSTESS HEAD SUMMARY VSS. ALERT AND ORIENTED. ESTRADA DRAINING NISHI. HOB ELEVATED FOR COMFORT. HAS DENIED PAIN WHEN ASKED THROUGHOUT SHIFT. LUNG SOUNDS DIMINISHED PER AUSCULTATION. O2 PER NC AT 1.5L/MIN. SATS IN THE 90'S. REFUSED STOOL SOFTENERS AT HS, VOICED HAVING LOOSE STOOLS THROUGHOUT THE DAY. HAS BEEN RESTING QUIETLY WITH FEW INTRRUPTIONS. ABLE TO REPOSITION SELF IN BED FOR COMFORT. CALL LIGHT IN REACH, RAILS UP X 2 AND BED IN LOW POSITION FOR SAFETY. WILL CONTINUE TO MONITOR.
[2024-12-24 06:12] LABS: Hematocrit 40.2 % (37.0-53.0); Hemoglobin 12.9 g/dL (13.5-17.5); Mean Corpuscular HGB 28.3 pg (26.0-34.0); Mean Corpuscular HGB Conc 32.1 g/dL (31.5-36.5); Mean Corpuscular Volume 88 fL (80-100); Mean Platelet Volume 11.5 fL (9.1-12.4); Platelet Count 381 K/mm3 (150-400); RDW Coefficient Variation 14.6 % (11.7-14.2); RDW Standard Deviation 46.5 fL (35.1-46.3); Red Blood Cell Count 4.56 M/mm3 (4.30-5.90); White Blood Cell Count 18.71 K/mm3 (4.00-11.30)
[2024-12-24 06:52] LABS: BASOPHILS PERCENT MAN 0 % (0-2); EOSINOPHILS ABSOLUTE MAN 0.18 K/mm3 (0.00-0.68); EOSINOPHILS PERCENT MAN 1 % (0-6); LYMPHOCYTES ABSOLUTE MAN 2.05 K/mm3 (0.84-5.20); LYMPHOCYTES PERCENT MAN 11 % (21-46); METAMYELOCYTE ABSOLUTE MAN 0.74 K/mm3 (0.00-0.00); METAMYELOCYTE PERCENT MAN 4 % (0-0); MONOCYTES ABSOLUTE MAN 0.74 K/mm3 (0.16-1.47); MONOCYTES PERCENT MAN 4 % (4-13); NEUTROPHILS ABSOLUTE MAN 14.96 K/mm3 (1.96-9.15); SEG NEUTROPHILS PERCENT MAN 80 % (41-73); TOTAL CELLS COUNTED 100
[2024-12-24 07:04] LABS: Bun/Creatinine Ratio 26.4 (12.0-20.0); Calcium, Blood 9.1 mg/dL (8.5-10.1); Creatinine, Blood 1.1 mg/dL (0.60-1.20); Potassium, Blood 4.1 mmol/L (3.5-5.5)
[2024-12-24 12:07] VITALS: BP 166/62
[2024-12-24] MEDS ORDERED: Vancomycin HCL 1,500 MG in NS 250 ML IV ONE (13:55)
[2024-12-24] MEDS ORDERED: NS 250 ML IV PRN (14:30)
[2024-12-24 16:25] VITALS: BP 175/60
--- NOTE | 2024-12-24 17:00 | NUR ---
ASSUMPTION OF CARE ASSUMED CARE FROM PRIOR DAY RN, PT RESTING IN BED WATCHING TV, IV PUMPBEEPIN DISTAL OCCLUSION WHICH WAS FIXED, DISCUSSED CHANGE OF STAFF WITH THE PATIENT, ABX INFUSING IN RAC PIV, LWR PIV REMOVED PRIOR DAY RN REPORTED IT NOT WORKING. NO NEEDS AT THIS TIME.
[2024-12-24] MEDS ORDERED: Ampicillin Sod/Sulbactam Sod 3 GM in NS 100 ML IV SCH (18:00)
--- NOTE | 2024-12-24 18:39 | NUR ---
SHIFT SUMMARY PT AXO, PLEASANT AND COOPERATIVE WITH CARE. UPON REVIEW OF VS, AT 1625 PT'S BP WAS ELEVATED AT 175/60. THIS NURSE WAS NOT MADE AWARE BY GRAD INTERN. AT THIS TIME, THIS NURSE NOTIFIED ONCOMING NURSE OF ELEVATED BP WHO STATES THAT SHE WILL MONITOR. PT UP WITH 1 ASSIST TO BATHROOM TO HAVE BM X2 THIS SHIFT. PT UP TO CHAIR FOR MEALS.
[2024-12-24 20:37] VITALS: BP 165/58
[2024-12-24] MEDS ORDERED: Trimethoprim/Sulfamethoxazole DS Tab PO SCH (21:00)
[2024-12-25 00:05] VITALS: BP 163/51
[2024-12-25 04:28] VITALS: BP 116/47
--- NOTE | 2024-12-25 04:56 | NUR ---
SHIFT SUMMARY PT A&O X4. C/O NAUSEA AND APPETITE LOSS. MEDICATED WITH ZOFRAN PER EMAR. PT REFUSED MOST OF HIS SCHEDULED MEDICATIONS DUE TO NAUSEA. REFUSED OFFERED REGLAN FOR NAUSEA. PT DID TAKE HIS METOPROLOL AFTER ENCOURAGEMENT- PT HAD EPISODE OF SVT REQUIRING ADENOSINE A COUPLE OF NIGHTS AGO. PT SUBSIQUENTLY HAD 2 EPISODES OF 6-8 BEATS OF SB IN THE HIGH 30'S AFTER 0100. PT ASYMPTOMATIC WITH THIS. PT REFUSED PROTECTIVE MEPELEX PLACEMENT TO COCCYX FOR RED, BUT BLANCHABLE AREA. PT ALSO REFUSING POSITION CHANGES. PT WITH CHRONIC ESTRADA DRAINING YELLOW URINE. PT IRRITABLE WITH CARE, "YOU JUST HAVE TO LEAVE ME ALONE AND STOP POKING AT ME". PT WITH IMPROVED NAUSEA AT 0300, AND ATE 1/4 OF A SANDWICH. PT SLEPT LONG INTERVALS DURING THE NIGHT. BED IN LOWEST POSITION, CALL LIGHT WITHIN REACH, SIDERAILS UP X2.
[2024-12-25 06:23] LABS: Hemoglobin 12.4 g/dL (13.5-17.5); Mean Corpuscular HGB 28.9 pg (26.0-34.0); Mean Corpuscular HGB Conc 33.5 g/dL (31.5-36.5); Mean Corpuscular Volume 86 fL (80-100); Mean Platelet Volume 11.8 fL (9.1-12.4); Platelet Count 436 K/mm3 (150-400); RDW Coefficient Variation 14.5 % (11.7-14.2); RDW Standard Deviation 45.3 fL (35.1-46.3); Red Blood Cell Count 4.29 M/mm3 (4.30-5.90)
[2024-12-25 06:52] LABS: Albumin, Blood 2.4 g/dL (3.4-5.0); Albumin/Globulin Ratio 0.6 (0.8-1.8); Bilirubin, Total 0.5 mg/dL (0.1-1.0); Bun/Creatinine Ratio 22.7 (12.0-20.0); Calcium, Blood 8.9 mg/dL (8.5-10.1); Creatinine, Blood 1.1 mg/dL (0.60-1.20); Globulin, Blood 3.9 g/dL (2.2-4.0); Potassium, Blood 4.3 mmol/L (3.5-5.5); Total Protein, Blood 6.3 g/dL (6.4-8.2)
[2024-12-25 07:27] VITALS: BP 113/45
[2024-12-25 12:28] VITALS: BP 108/41
[2024-12-25] MEDS ORDERED: Vancomycin HCL 1,250 MG in NS 250 ML IV SCH (15:00)
[2024-12-25 16:41] VITALS: BP 113/40
--- NOTE | 2024-12-25 19:20 | NUR ---
SHIFT SUMMARY PT IS A/OX4. SBA WITH FWW TO BATHROOM. NO ACUTE CHANGES THROUGHOUT THIS SHIFT. PT CONTINUES 2L O2 TO MAINTAIN SATS >92%. CONTINUING IV ANTIBIOTICS. PT CONT OF BOWELS, STOOL IS SOFT, PT STATES MORE FORMED THAN YESTERDAY. ON TELE RUNNING NORMAL SINUS RYTHYM/SINUS ARRYTHMIA IN THE 50'S. CHRONIC ESTRADA IN PLACE, PATENT AND DRAINING DARK YELLOW URINE.
[2024-12-25 20:03] VITALS: BP 123/42
[2024-12-25] MEDS ORDERED: Metoprolol Tartrate 25 MG Tab PO SCH (21:00)
[2024-12-26 00:27] VITALS: BP 127/46
--- NOTE | 2024-12-26 02:57 | NUR ---
LIVESTOCK AUCTIONEER SUMMARY VSS. AWAKE AT INTERVALS. REQUESTED "TYLENOL" FOR GENERAL PAIN - SEE MAR FOR DETAILS. IV ANTIBIOTICS INFUSING ORDERED. ESTRADA DRAINING NISHI. INCONT OF BM AND CHANGED. ABLE TO REPOSITION SELF IN BED WITHOUT ASSIST FOR COMFORT. HOB ELEVATED. O2 PER NC. MED TELE - SINUS ARRYTHMIA, ASYMPTOMATIC. STATED HE WAS "GOING HOME" TODAY. BUT NO ORDER NOTED OF SUCH. 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 AFFECT CHEERFUL AND COOPERATIVE WITH CARE. WILL CONT TO MONITOR
[2024-12-26 05:03] VITALS: BP 117/47
[2024-12-26 06:25] LABS: Hemoglobin 12.2 g/dL (13.5-17.5); Mean Corpuscular HGB 28.4 pg (26.0-34.0); Mean Corpuscular HGB Conc 32.1 g/dL (31.5-36.5); Mean Corpuscular Volume 88 fL (80-100); Mean Platelet Volume 11.5 fL (9.1-12.4); Platelet Count 435 K/mm3 (150-400); RDW Coefficient Variation 14.7 % (11.7-14.2); RDW Standard Deviation 46.6 fL (35.1-46.3); White Blood Cell Count 11.58 K/mm3 (4.00-11.30)
[2024-12-26 06:48] LABS: BASOPHILS PERCENT MAN 0 % (0-2); EOSINOPHILS ABSOLUTE MAN 0.11 K/mm3 (0.00-0.68); EOSINOPHILS PERCENT MAN 1 % (0-6); LYMPHOCYTES % ATYPICAL MANUAL 3 % (0-0); LYMPHOCYTES ABSOLUTE MAN 2.89 K/mm3 (0.84-5.20); LYMPHOCYTES PERCENT MAN 22 % (21-46); METAMYELOCYTE ABSOLUTE MAN 0.46 K/mm3 (0.00-0.00); METAMYELOCYTE PERCENT MAN 4 % (0-0); MONOCYTES ABSOLUTE MAN 0.81 K/mm3 (0.16-1.47); MONOCYTES PERCENT MAN 7 % (4-13); NEUTROPHILS ABSOLUTE MAN 7.29 K/mm3 (1.96-9.15); SEG NEUTROPHILS PERCENT MAN 63 % (41-73); TOTAL CELLS COUNTED 100
[2024-12-26 06:56] LABS: Bun/Creatinine Ratio 30.5 (12.0-20.0); Calcium, Blood 9.3 mg/dL (8.5-10.1); Creatinine, Blood 1.18 mg/dL (0.60-1.20); Potassium, Blood 4.1 mmol/L (3.5-5.5)
[2024-12-26 07:37] VITALS: BP 138/46
--- NOTE | 2024-12-26 08:32 | NUR ---
0832- RN NOTIFIED DR OWENS OF HR=44. MD SAID TO HOLD METOPROLOL. MD GAVE ORDER TO PLACE HOME O2 EVAL.
[2024-12-26] MEDS ORDERED: ZINC OXIDE/PETROLATUM, YELLOW 1 APPLIC/71 GM PASTE TOP PRN (08:45)
[2024-12-26] MEDS ORDERED: Miconazole Nitrate 2% 85 GM PWD TOP PRN (08:45)
--- NOTE | 2024-12-26 08:45 | NUR ---
0963- DR OWENS GAVE TELEPHONE ORDER FOR MICONAZOLE AND ZINC TO BE PLACED PRN.
[2024-12-26] MEDS ORDERED: Trimethoprim/Sulfamethoxazole DS Tab PO ONE (09:40)
--- NOTE | 2024-12-26 09:41 | NUR ---
0985- MD OWENS GAVE PHONE ORDER TO PLACE BACTRUM DS 1 TAB NOW.
[2024-12-26 12:07] VITALS: BP 127/40
[2024-12-26] MEDS ORDERED: AMLO5 PO (12:14)
[2024-12-26] MEDS ORDERED: METO25 PO (12:14)
[2024-12-26] MEDS ORDERED: VISBIOME 112.51 EACH PO (12:15)
[2024-12-26] MEDS ORDERED: SULTRIDS PO (12:15)
[2024-12-26] MEDS ORDERED: AMOCLA875 PO (12:15)
--- NOTE | 2024-12-26 16:37 | NUR ---
DC-1520 PT LEFT VIA [facility] IN STABLE CONDITION WITH ALL BELONGINGS AND WITH HARD SCRIPT. COPY OF HARD SCRIPT PLACED IN CHART. PT LEFT WITH SEAN. DC MED REC COPY PLACED IN PT'S CHART.
== END 2024-12-26 15:27 | disposition home health service (06) | DRG 871 ==
LOC: ER 17:31 → PCU 20:01 → ERHOLD 20:01 → PCU 21:00 → MEDS 21:28 → PCU 12-19 03:52 → MEDS 12-22 23:09
PROVIDERS: Emergency Medicine; Family Medicine; Hospitalist; Student in an Organized Health Care Education/Training Program; ADMIT Internal Medicine
PROC: 3E03329 Introduction of Other Anti-infective into Peripheral Vein, Percutaneous Approach (ICD-10-PCS; principal; 2024-12-18)
PROC: 0T2BX0Z Change Drainage Device in Bladder, External Approach (ICD-10-PCS; 2024-12-18)
DX: A41.9 Sepsis, unspecified organism (principal); J18.9 Pneumonia, unspecified organism; J96.01 Acute respiratory failure with hypoxia; I47.10 Supraventricular tachycardia, unspecified; N39.0 Urinary tract infection, site not specified; T83.038A Leakage of other urinary catheter, initial encounter; R65.20 Severe sepsis without septic shock; E03.9 Hypothyroidism, unspecified; I12.9 Hypertensive chronic kidney disease with stage 1 through stage 4 chronic kidney disease, or unspecified chronic kidney disease; F41.0 Panic disorder [episodic paroxysmal anxiety]; M48.00 Spinal stenosis, site unspecified; E87.6 Hypokalemia; E83.42 Hypomagnesemia; N18.32 Chronic kidney disease, stage 3b; R11.0 Nausea; T40.2X5A Adverse effect of other opioids, initial encounter; B95.62 Methicillin resistant Staphylococcus aureus infection as the cause of diseases classified elsewhere; K59.09 Other constipation; R19.7 Diarrhea, unspecified; Z87.81 Personal history of (healed) traumatic fracture; Z86.73 Personal history of transient ischemic attack (TIA), and cerebral infarction without residual deficits
CPT/HCPCS: 36415; 51702; 51798; 71045; 71260; 80048; 80053; 81001; 82803; 83605; 83735; 83880; 84145; 84439; 84443; 84484; 85025; 85027; 85379; 85610; 87040; 87077; 87086; 87186; 87428-QW; 87507; 92610; 93005; 93010; 93306; 94640; 94664; 94760; 94761; 94762; 97110; 97162; 97165; 97530; 99284-25; A9270; J0153; J0295; J0360; J0456; J0696; J1650; J2270; J2405; J3370; J3475; J3480; J7030; J7050; J7060; J7120; Q9967

== ENCOUNTER → 2025-06-08 | Outpatient (CLI) | payer MEDICARE, OTHER ==
[~2025-06-08] MED LIST: AMLO5 PO; AMOCLA875 PO; ASPI81CH PO; BISA10S PR; Crestor40 MG PO; DULCOLAX400 MG/5 M PO; EUTHYROX50 MCG PO; LOPE2C PO; METO25 PO; MIRALAX17 GM PO; MS CONTIN15 MG PO; Morphine Sulfat15 MG PO; ONDA4ODT MM; SULTRIDS PO; VISBIOME 112.51 EACH PO
[2025-06-08 11:02] LABS: Source, Urine Clean Catch
[2025-06-08 13:39] LABS: Bilirubin, Urine Neg (Neg); Color, Urine Red (P-Yellow); Glucose Qualitative, Urine Neg (Neg); Ketones, Urine Neg (Neg); Leukocyte Esterase, Urine 3+ (Neg); Protein, Urine 3+ (Neg); Specific Gravity, Urine 1.010 (1.003-1.022); Urobilinogen, Urine NORM (Normal)
[2025-06-08 13:51] LABS: Red Blood Cells, Urine TNTC /hpf (0-2)
== END | disposition home or self-care (01) ==
LOC: LAB SHORT 11:01 → LAB 11:01
PROVIDERS: Nurse Practitioner Family
DX: T85.698A Other mechanical complication of other specified internal prosthetic devices, implants and grafts, initial encounter (principal); N39.0 Urinary tract infection, site not specified
CPT/HCPCS: 81001; 87086

== ENCOUNTER → 2025-10-04 | Outpatient (CLI) | payer MEDICARE, OTHER ==
[2025-10-04 14:52] LABS: Bilirubin, Urine Neg (Neg); Color, Urine Yellow (P-Yellow); Glucose Qualitative, Urine Neg (Neg); Ketones, Urine Neg (Neg); Leukocyte Esterase, Urine 3+ (Neg); Protein, Urine 3+ (Neg); Specific Gravity, Urine 1.010 (1.003-1.022); Urobilinogen, Urine NORM (Normal)
[2025-10-04 15:09] LABS: Red Blood Cells, Urine TNTC /hpf (0-2); White Blood Cells, Urine TNTC /hpf (0-5)
== END ==
LOC: LAB 13:30 → LAB SHORT 13:30
PROVIDERS: Nurse Practitioner Family
DX: N39.0 Urinary tract infection, site not specified (principal)
CPT/HCPCS: 81001; 87086